=== PATIENT | female | born 1950 | race Hispanic/Latino ===

== ENCOUNTER 2018-04-09 09:00 | Day surgery (SDC) | payer BC ==
[2018-04-09] MEDS ORDERED: Propofol 10 mg/ml Inj (20 ML) ONE (09:59)
[2018-04-09] MEDS ORDERED: Lidocaine PF 2% (5 ml) Inj (For Cardiac Arrhy) ONE (09:59)
[2018-04-09] MEDS ORDERED: Sodium Chloride 0.9% 1,000 ML IV SCH (11:30)
[2018-04-09 12:11] VITALS: BP 136/90; PULSE 80; RESP 16; TEMP 97.3; O2SAT 100
== END 2018-04-09 12:59 | disposition home or self-care (01) ==
LOC: ENDO 09:00
PROVIDERS: ATTEND Specialist
DX: Z12.11 Encounter for screening for malignant neoplasm of colon (principal); D12.4 Benign neoplasm of descending colon; D12.3 Benign neoplasm of transverse colon; D12.0 Benign neoplasm of cecum; K57.30 Diverticulosis of large intestine without perforation or abscess without bleeding; K64.8 Other hemorrhoids; E03.9 Hypothyroidism, unspecified; R10.13 Epigastric pain; Z98.84 Bariatric surgery status; Z90.49 Acquired absence of other specified parts of digestive tract
CPT/HCPCS: 43239; 45381; 45385; 88305; 88342; J2704; J7030; J7040